=== PATIENT | female | born 1985 | race Caucasian/White ===

== ENCOUNTER → 2020-08-23 14:53 | Outpatient (CLI) | payer BC, SELFPAY ==
--- NOTE | ~2020-08-23 | CT_ITS ---
EXAMINATION: CTA chest PE protocol DATE: 08/23/2020 15:39 INDICATION: Shortness of breath. Elevated d-dimer. TECHNIQUE: Computed tomography (CT) pulmonary angiogram of the chest was performed with 100 mL Omnipa que-350 intravenous contrast. Additional 3D reconstructions utilizing coronal maximum intensity proje ction (MIP) were performed. The dose-length product was 636.30 mGy-cm. COMPARISON: None FINDINGS: Excellent contrast opacification of the pulmonary arteries. There is mild streak artifact from dense contrast in the superior vena cava and right atrium. Generally mild scattered respiratory motion maggie fact with moderate motion artifact at the posterior basilar lower lobes. Overall this mildly decrease s sensitivity in some of the smaller subsegmental pulmonary arteries. No pulmonary embolism. No pneum onia, pulmonary edema or other pulmonary infiltrates. No pleural effusion or pneumothorax. Heart size is normal. No pericardial effusion. Thoracic aorta is normal in caliber with no dissection. No patho logically enlarged thoracic lymphadenopathy. Cholecystectomy clips at the gallbladder fossa. Mild low er thoracic spondylosis. IMPRESSION: 1. No pulmonary embolism or other acute cardiopulmonary disease. Reviewed, dictated and finalized at location [facility]
[2020-08-23 15:30] LABS: Estimated Glomerular Filt Rate > 60
== END ==
DX: R79.89 Other specified abnormal findings of blood chemistry (principal)
CPT/HCPCS: 71275; Q9967

== ENCOUNTER 2022-01-02 11:32 | Outpatient (CLI) | payer BC, SELFPAY | END 2022-01-02 11:33 | disposition home or self-care (01) | PROVIDERS: PCP Family Medicine | DX: Z32.00 Encounter for pregnancy test, result unknown (principal) | CPT/HCPCS: 36415; 84702 ==

== ENCOUNTER 2022-05-30 11:12 | Outpatient (CLI) | payer BC, SELFPAY ==
[2022-05-30 12:52] LABS: Basophils Percent Auto 0.3 % (0.2-1.2); Eosinophils Absolute Auto 0.3 K/mm3 (0-0.3); Eosinophils Percent Auto 2.3 % (0-4.4); Hematocrit 30.7 % (37.0-47.0); Hemoglobin 10.5 g/dL (12.0-15.0); Immature Granulocyte Absolute 0.11 K/mm3 (0.00-0.031); Immature Granulocyte Percent A 0.9 % (0-0.5); Lymphocytes Absolute Auto 1.68 K/mm3 (0.9-3.2); Lymphocytes Percent Auto 14.1 % (18.3-44.2); Mean Corpuscular HGB Conc 34.2 g/dl (32-36); Mean Corpuscular Hemoglobin 29.3 pg (26-34); Mean Corpuscular Volume 85.8 fl (80-100); Mean Platelet Volume 9.8 fl (7.4-10.4); Monocytes Absolute Auto 0.4 K/mm3 (0.1-0.6); Monocytes Percent Auto 3.4 % (2.6-8.5); Neutrophils Absolute Auto 9.4 K/mm3 (1.3-6.7); Platelet Count Result 298 k/mm3 (150-375); Red Blood Count 3.58 M/mm3 (4.2-5.4); Red Cell Distribution Width 13.1 % (11.5-14.5); White Blood Count 11.9 K/mm3 (4.5-10.0)
[2022-05-30 12:56] LABS: Creatinine Urine 239.4 mg/dL; Total Protein Urine Random 7 mg/dL; Ur Ttl Prot Creatinine Ratio 0.03 mg/mg (0-0.20)
[2022-05-30 13:24] LABS: Alanine Aminotransferase 19 U/L (6-35); Albumin Level 3.7 g/dL (3.5-5.1); Alkaline Phosphatase 125 U/L (38-126); Anion Gap 8 mmol/L (8-16); Aspartate Amino Transferase 19 U/L (14-36); Bilirubin,Total 0.3 mg/dL (0.2-1.3); Blood Urea Nitrogen 3 mg/dL (7-17); Calcium 9.2 mg/dL (8.4-10.2); Carbon Dioxide 22 mmol/L (22-30); Chloride 106 mmol/L (98-107); Estimated Glomerular Filt Rate > 60; Glucose 157 mg/dL (65-110); Glucose 1 Hour PP 50gm Dose 155 mg/dL; Potassium 3.3 mmol/L (3.4-5.0); Sodium 136 mmol/L (137-145)
== END 2022-05-30 11:13 | disposition home or self-care (01) ==
DX: O09.92 Supervision of high risk pregnancy, unspecified, second trimester (principal)
CPT/HCPCS: 36415; 80053; 82570; 82947; 84156; 85025

== ENCOUNTER → 2023-01-30 10:54 | Outpatient (CLI) | payer BC, SELFPAY ==
--- NOTE | ~2023-01-30 | CT_ITS ---
Non-contrast CT scan of the Abdomen and Pelvis Clinical indication: Chronic abdominal pain Technique: 2.5 mm axial scans were obtained through the abdomen and pelvis without intravenous or or al contrast. Dose reduction technique was used on this scan by utilizing automated exposure control a nd iterative reconstruction technique. The dose-length product (DLP) was 980.25 mGy-cm. Findings: Images through the lung bases reveal no abnormalities. The liver, spleen, pancreas, kidneys, and adrenals appear normal. Cholecystectomy clips are present. There is no aortic aneurysm. There is no evidence of bowel obstruction. There is a low anterior midline ventral hernia containing several loops of small bowel. No bowel wall thickening. Images through the pelvis were performed. There is no evidence of ascites or lymphadenopathy. Urinary bladder unremarkable. 4 cm probable right adnexal cyst present. Impression: Low anterior midline ventral hernia containing several loops of small bowel. No bowel wall thickening or obstruction. 4 cm right adnexal cyst. Reviewed, dictated and finalized at [facility]. Impression: Low anterior midline ventral hernia containing several loops of small bowel. No bowel wall thickening or obstruction. 4 cm right adnexal cyst.
== END ==
PROVIDERS: PCP Family Medicine; Visit Provider Family Medicine
DX: R10.9 Unspecified abdominal pain (principal); K43.9 Ventral hernia without obstruction or gangrene
CPT/HCPCS: 74176

== ENCOUNTER 2025-06-16 10:25 | Outpatient (CLI) | payer BC, SELFPAY ==
--- OUTSIDE RECORDS SUMMARY | 2025-06-16 11:04 | XMS_ITS | Clinical Summary ---
Author Organization [facility] Address [address] [place] [address] Care Team Providers Care Human Performance Technologist Name Role Phone Tony Santos MD Primary Care Provider Allergies Active Allergy Reactions Criticality Noted Date Comments Penicillins Rash Low 08/21/2022 Medications vitamin (VINATE M) 27-1 MG Tab tablet Take 1 tablet by mouth daily. Active chlorthalidone (HYGROTEN) 25 MG tablet Take 0.5 tablets (12.5 mg total) by mouth daily. 08/06/2024 Active WEGOVY 2.4 mg/dose injection (PEN) Inject 2.4 mg into the skin once a week. 07/28/2024 Active amLODIPine (NORVASC) 10 MG tablet Take 1 tablet (10 mg total) by mouth daily. 10/23/2024 Active buPROPion SR (WELLBUTRIN SR) 150 MG 12 hr tablet Active ELIQUIS 5 MG tablet Active Active Problems Problem Noted Date Diagnosed Date History of DVT (deep vein thrombosis) 11/19/2024 Family History Medical History Relation Comments Breast Cancer Maternal Grandmother No Known Problems Mother Relation Status Comments Father Maternal Grandmother Mother Alive Social History Tobacco Use Types Packs/Day Years Used Date Smoking Tobacco: Never Smokeless Tobacco: Never Tobacco Cessation:Counseling Given: Not Answered Alcohol Use Standard Drinks/Week Comments Never 0 (1 standard drink = 0.6 oz pur e alcohol) Comments No Sex and Gender Information Value Date Recorded Sex Assigned at Female 08/16/2024 8:49 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 Legal Sex Female 7:09 PM VEGETABLE GROWER Gender Identity Not on file Sexual Orientation Not on file Last Filed Vital Signs Vital Sign Reading Time Taken Comments Blood Pressure 129/77 12/24/2024 2:35 PM CDT Pulse 98 12/24/2024 2:35 PM CDT Temperature 35.8 C (96.5 F) 12/24/2024 2:35 PM CDT Respiratory Rate 20 12/24/2024 2:35 PM CDT Oxygen Saturation 100% 12/24/2024 2:35 PM CDT Inhaled Oxygen Concentration - - Weight 75.8 kg (167 lb) 12/24/2024 2:35 PM CDT Height 170.2 cm (5' 7) 11/19/2024 2:54 PM CDT Body Mass Index 26.16 11/19/2024 2:54 PM CDT Plan of Treatment Health Maintenance Due Date Last Done Comments Cervical Cancer Screening Pap Smear (Age 30 to 64) Every 3 Years 1986 Annual Physical 1989 Hepatitis C 2004 Hepatitis B Vaccines (1 of 3 - 19+ 3-dose series) 2005 HPV Vaccines (1 - 3-dose SCDM series) 2013 Cervical Cancer Screening Pap with HPV Testing (Age 30 to 64) Every 5 Years 2016 Cervical Cancer Screening with HPV 2016 COVID-19 Vaccine ( season) 2025 Influenza Adult (#1) 2025 DTaP, Tdap and Td Vaccines (2 - Td or Tdap) 06/20/2032 06/20/2022, 02/25/1992, 02/26/1988, Additional history exists Hepatitis A Vaccines Aged Out No long er eligible based on patient's age to complete this topic Meningococcal B Vaccine Aged Out No l onger eligible based on patient's age to complete this topic Meningococcal Vaccine Aged Out No rashmi gonsalo eligible based on patient's age to complete this topic Pneumococcal Vaccine: Pediatrics (0 to 5 Years) and At-Risk Patients (6 to 49 Years) Aged Out No longer eligible based on patient's age to complete this topic RSV Immunizations Under 20 Months Aged Out No longer eligible based on patient's age to complete this topic Insurance [facility] Care Teams Human Performance Technologist Relationship Specialty Start Date End Date Tony Santos MD [address] [place] [address] PCP - General FAMILY PRACTICE 05/05/19
--- OUTSIDE RECORDS SUMMARY | 2025-06-16 11:04 | XMS_ITS | Encounter Summary ---
Author Organization [facility] Address [address] [place] [address] Care Team Providers Care Silo Painter Name Role Phone oTny Santos MD Primary Care Provider [phone]- [phone] Encounter Details Date Type Department Care Team (Late st Contact Info) Description 07/03/2022 Telephone [facility] [place] [id number] Gavi Stephens RT Social History Tobacco Use Types Packs/Day Years Used Date Smoking Tobacco: Never Smokeless Tobacco: Never Alcohol Use Standard Drinks/Week Comments Yes 1 (1 standard drink = 0.6 oz pur e alcohol) once a week Comments Yes Sex and Gender Information Value Date Recorded Sex Assigned at Not on file Legal Sex Female 9:45 AM CDT Gender Identity Not on file Sexual Orientation Not on file documented as of this encounter Plan of Treatment Not on file documented as of this encounter Visit Diagnoses Not on filedocumented in this encounter Care Teams Silo Painter Relationship Specialty Start Date End Date Tony Santos MD [address] [place] [address] [place] [address] PCP - General 04/15/18 documented as of this encounter
--- OUTSIDE RECORDS SUMMARY | 2025-06-16 11:04 | XMS_ITS | Clinical Summary ---
Author Organization [employer] [facility] Address [address] [place] [address] Care Team Providers Care Community Health Nurse Name Role Phone Pcp, Hazel Primary Care Provider [phone] Social History Tobacco Use Types Packs/Day Years Used Date Smoking Tobacco: Never Assessed Comments Unknown Sex and Gender Information Value Date Recorded Sex Assigned at Not on file Legal Sex Female 10:19 PM EDT Gender Identity Not on file Sexual Orientation Not on file Plan of Treatment Not on file Medical Devices Not on file Insurance [facility] Care Teams Community Health Nurse Relationship Specialty Start Date End Date Pcp, Hazel PCP - General Family Medicine 02/02/21
--- OUTSIDE RECORDS SUMMARY | 2025-06-16 11:04 | XMS_ITS | Encounter Summary ---
Author Organization [facility] Address [address] [place] [address] Phone Care Team Providers Care Technology Methodology Consultant Name Role Phone Tony Santos MD Primary Care Provider [phone]- [phone] Encounter Details Date Type Department Care Team (Late st Contact Info) Description 06/16/2025 Orders Only [facility] Medicine Gastroenterology [address] [place] [address] [place] [address] Sarah Pineda RN Elevated liver enzymes (Primary Dx) Social History Tobacco Use Types Packs/Day Years Used Date Smoking Tobacco: Never Smokeless Tobacco: Never Alcohol Use Standard Drinks/Week Comments Yes 1 (1 standard drink = 0.6 oz pur e alcohol) once a week AUDIT-C Answer Date Recorded Q1: How often do you have a drink containing alcohol? Never 08/31/2022 Q2: How many drinks containi ng alcohol do you have on a typical day when you are drinking? Patient does not drink Q3: How often do you have si x or more drinks on one occasion? Never 08/31/2022 Titus Depression Scale Answer Date Recorded Titus Depression Scale Total 6 09/14/2022 The thought of harming myself has occurred to me . Never 09/14/2022 Personal Safety Answer Date Recorded Have you ever been in or are you currently in a harmful physical or emotional relationship or is someone making you feel afraid or unsafe? Denies 06/08/2025 Comments Unknown Sex and Gender Information Value Date Recorded Sex Assigned at Not on file Legal Sex Female 9:45 AM CDT Gender Identity Not on file Sexual Orientation Not on file documented as of this encounter Plan of Treatment Scheduled Orders Name Type Priority Associated Diagnoses Orde r Schedule Comprehensive metabolic panel Lab Routine Elevated liver enzymes Expected: 06/23/2025, Expires: 06/16/2026 documented as of this encounter Visit Diagnoses Diagnosis Elevated liver enzymes- Primary Other nonspecific abnormal serum enzyme levels documented in this encounter Care Teams Technology Methodology Consultant Relationship Specialty Start Date End Date Tony Santos MD [address] [address] PCP - General 04/15/18 documented as of this encounter
--- OUTSIDE RECORDS SUMMARY | 2025-06-16 11:04 | XMS_ITS | Clinical Summary ---
Author Organization [facility] Address [address] [place] [address] Care Team Providers Care Creative Services Designer Name Role Phone Tony Santos MD Primary Care Provider [phone] Allergies Active Allergy Reactions Criticality Noted Date Comments Amoxicillin Hives Medium 12/10/2017 Enalapril Cough Low 08/16/2023 Medications amLODIPine (NORVASC) 10 mg tabletIndications :Chronic hypertension affecting Take 1 tablet (10 mg total) by mouth daily 90 tablet 3 Active vit [id number] 27mg iron- 800 mcg-250 mg capsule Take by mouth Active cholecalciferol, vitamin D3, (VITAMIN D3 ORAL) Take by mouth Active aspirin 81 mg enteric coated tabletIndications :Chronic hypertension affecting ,Supervi gallito of high-risk , first trimester Take 1 tablet (81 mg total) by mouth daily Start at 12 weeks. 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 Hightower on 09/25, reviewed today: counseled the patient that these findings have up to a 50% association with aneuploidy and genetic syndromes. Counseled that in the 50% of cases without genetic abnormalities, about 1/3 will have a major structural abnormality, 1/3 will undergo miscarriage or IUFD, and 1/3 will be apparently normal on follow-up. Underwent CVS today. Desiring to continue at this time, previously counseled on options. Plan [] F/u in 2 weeks for dop tones [] CVS on 09/30, f/u FISH/ELECTRIC ARC FURNACE OPERATOR and Adalgisa Luciano to send hydrops panel vs Violet syndrome testing if FISH negative [x] T&S w/ passive anti-D on 09/18 [] Specialized anatomy US w/ MCA dopplers in 4 weeks [] echo to be scheduled at next appointment [] Infection testing via amniocentesis if above workup negative and continues w/ persistent hydrops Incisional hernia of anterior abdominal wall Overview (08/31/2023): History Ms. Fulton developed a large anterior abdominal wall hernia following her section 08/2022 that contains nonobstructed loops of small bowel. She has previously met with Dr. Telles regarding this finding and desire to repair this after she has completed childbearing. Previously counseled Plan [] Follow up with Dr. Telles 10/09/2023 [] Consider joint case with general surgery for delivery [] Imaging in to be determined as progresses Assessment & Plan (08/16/2023 6:01 PM ARCHITECTURAL DRAFTER): History Ms. Fulton developed a large anterior abdominal wall hernia following her section 08/2022 that contains nonobstructed loops of small bowel. She has previously met with Dr. Telles regarding this finding and desire to repair this after she has completed childbearing. Counseling We reviewed that abdominal wall hernias are at increased risk for obstruction, gangrene, and complication in secondary to the expanding abdominal contents. However, in her situation the abdominal hernia is large which decreases the risk of these complications. We reviewed that this defect would require closure eventually (ideally after completed childbearing) and that mesh may be required pending general surgery recommendations. We reviewed that general surgery may also be asked to join for a joint case in her delivery by section given the bowel contents of the hernia. Plan [] Follow up with Dr. 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 Counseling We reviewed that neural tube defects are relatively common congenital anomalies that can result in malformation of the vertebrae, spinal cord, and/or brain. We reviewed risk factors for NTDs including folate deficiency, obesity, pregestational diabetes, and genetic/syndromic factors. We reviewed that the recurrence risk with one previous affected is approximately 5% or 1/20 and that recurrence risk is likely related to a multifactorial inheritance pattern that includes both genetic and environmental factors. We discussed the availability of early screening for diagnosis of affected pregnancies. We discussed that in women with a prior affected the preferred method of screening would be ultrasound in conjunction with serum MSAFP (for oNTD). We reviewed that typically we perform an early anatomy ultrasound between 11-13 weeks and can offer MSAFP at 15-18 weeks. We then perform a detailed anatomical survey between 18-20 weeks. Furthermore we reviewed that in the setting of an abnormal result we would recommend a karyotype or microarray given fetuses with NTDs are at increased risk (~6.5%) of chromosomal abnormalities, especially in the setting of other structural anomalies. (~9%). Finally, we did discuss the topic of folic acid and its ability to decrease the recurrence risk of neural tube defects in subsequent pregnancies. The risk of recurrence is in the range of 5% without supplementation. With the use of 4 mg of folic acid per day for at least 3 months preconception there is a 75% reduction in the risk of recurrence. Ms. Fulton is currently taking 800 mcg daily of folic acid in vitamin. 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 Her partner is known negative for SMA. Plan [x] Genetic counseling offered - 08/16/23, declines (previously completed) Assessment & Plan (08/16/2023 6:04 PM ARCHITECTURAL DRAFTER): History Ms. Fulton is a known silent carrier for SMA. Her partner is known negative for SMA. Plan [x] Genetic counseling offered - 08/16/23, declines (previously completed) Obesity complicating 08/15/2023 Overview (08/31/2023): History Pre- BMI 36, previously counseled Plan [x] As per Roberto Carlos, TIGIST, and hx GDM problems Assessment & Plan (08/15/2023 6:33 PM ARCHITECTURAL DRAFTER): History Pre- BMI 36. Counseling The risks associated with obesity, including preeclampsia, gestational diabetes, delivery, growth abnormalities (FGR and macrosomia) and stillbirth. We would recommend a specialized anatomic survey, serial growth assessment and surveillance. Aspirin 81mg should be started after 12 weeks to decrease the risk of preeclampsia. We would recommend early diabetes screening. Plan [x] As per cHTN, AMA, and hx GDM problems Supervision of high-risk 08/07/2023 Overview (10/03/2023): [x] Full [facility] Care; [x] Blue Team Referring Provider: Self Referral. Prior [facility] patient [] or Medicare Insurance [x] Dating Criteria: LMP 06/21/23 with JOAO 03/27/24, L=1 by 1T US on 08/16 [x] Labs: Rh [AB-], Ab [negative], Rubella [reactive], HIV [nonreactive], HepBSAg [nonreactive], RPR [nonreactive], Hep C [nonreactive], Varicella [reactive], GC/CT [not detected] [x] Aneuploidy: discussed 08/16/23, declined 09/04/23 [x] Carrier Screening: Carrier of Spinal Muscular Atrophy (AR) > partner is known negative [x] CBC/Hgb: 12.1/34.7/327 [x] Early 1hr GTT (if indicated): HbA1c ordered 08/16/23- 5.2 [x] UCx: insignificant growth on 09/30 [x] Pap: 11/09/17: NILM; HPV negative - reports Pap 09/2022 with primary OB - to obtain records [x] Flu Shot (Feb-May): n/a [] COVID [x] LD ASA (if indicated): indicated, to start at 12 weeks [] EPDS [ ]; PNBHS referral (if indicated) 2nd Tri Labs: [] Anatomy ultrasound: [] CBC/1hr gtt at 24-28wks: [] Tdap (27-36wks): [] Rhogam at 28 wks (if Rh neg): 3rd Tri Labs: [] CBC/HIV/RPR/T&S: [] GBS: [] GC/CT (if indicated): [] testing: [] RSV Counseling [x] MOD: rCS at 36-37 weeks [x] Place of delivery: [facility] [] Blood Products [] Stop ASA [] MOC: [] Method of feeding: [] Gear Tooth Grinding Machine Operator: [] PP Depression Discussed: Assessment & Plan (08/16/2023 6:09 PM ARCHITECTURAL DRAFTER): Initial OB visit. Ultrasound not consistent with LMP, dated by US today. Needs all labs, including HbA1c for history of GDM and baseline PIH labs. Reviewed recommendation to increase folic acid due to history of encephalocele. SEROLOGIES NEEDED [] Co-management vs. [x] Full MFM Care; [] Red Team [x] Blue Team Referring Provider: Self Referral. Prior MFM patient [] or Medicare Insurance [x] Dating Criteria: LMP 06/21/23 with JOAO 03/27/24 [] Labs: Rh [ ], Ab [ ], Rubella [ ], HIV [ ], HepBSAg [ ], RPR [ ], Hep C [ ], Varicella [ ], GC/CT [ ] - ordered 08/16/23 [] Aneuploidy: discussed 08/16/23, considering [x] Carrier Screening: Carrier of Spinal Muscular Atrophy (AR) > partner is known negative [] CBC/Hgb: ordered 08/16/23 [] Early 1hr GTT (if indicated): HbA1c ordered 08/16/23 [] UCx: to be completed at next visit [x] Pap: 11/09/17: NILM; HPV negative - reports Pap 09/2022 with primary OB - to obtain records [] Flu Shot (Feb-May): [] COVID [] LD ASA (if indicated): indicated, to start at 12 weeks [] EPDS [ ]; PNBHS referral (if indicated) 2nd Tri Labs: [] Anatomy ultrasound: [] CBC/1hr gtt at 24-28wks: [] Tdap (27-36wks): [] Rhogam at 28 wks (if Rh neg): 3rd Tri Labs: [] CBC/HIV/RPR/T&S: [] GBS: [] GC/CT (if indicated): [] testing: [] RSV Counseling [x] MOD: rCS at 36-37 weeks [x] Place of delivery: [facility] [] Blood Products [] Stop ASA [] MOC: [] Method of feeding: [] Gear Tooth Grinding Machine Operator: [] PP Depression Discussed: History of gestational diabetes 10/09/2022 Overview (09/30/2023): History Had GDMA2 in G2 . Did not complete 2hr GTT . Previously counseled Plan [x] HbA1c - 5.2% [] Screening at 24-28 weeks if HbA1c is normal Assessment & Plan (08/16/2023 6:04 PM ARCHITECTURAL DRAFTER): History Had GDMA2 in G2 . Did not complete 2hr GTT . Counseling We reviewed that gestational diabetes is a condition in which carbohydrate intolerance develops during resulting in elevated blood sugars. We reviewed that women with a history of gestational diabetes in a prior are at increased risk of gestational diabetes in subsequent pregnancies as well as having an approximately 50-70% risk of developing T2DM over the next 10 years. We would recommend early diabetes screening this . If this is normal, we would recommend routine screening at 24-28 weeks. Plan [] HbA1c - ordered 08/16/23 [] Screening at 24-28 weeks if HbA1c is normal Chronic hypertension affecting 023 Overview (09/25/2023): History Known chronic hypertension, previously on amlodipine 10 mg qD + chlorthalidone (which she stopped for ). Blood pressure elevated on initial OB visit (140/84). Added hydralazine 25 mg TID. Previously counseled Current regimen: Amlodipine 10mg qD + Hydralazine 25mg TID Plan [x] ASA at 12 weeks [x] Baseline labs (CBC, CMP, UPC) - collected 08/16/23- WNL [x] EKG: NSR 09/03/2022 [] Maternal ECHO - ordered 08/16/23- not scheduled - auth completed [] Specialized anatomic survey [] Serial growth ultrasound starting at 24 weeks [] Weekly surveillance starting at 32 weeks [] Delivery at 38 weeks Assessment & Plan (08/16/2023 6:03 PM ARCHITECTURAL DRAFTER): History Known chronic hypertension, previously on amlodipine 10 mg qD + chlorthalidone (which she stopped for ). Blood pressure elevated on initial OB visit (140/84). Added hydralazine 25 mg TID. Counseling We counseled the patient that chronic hypertension is associated with an increased risk of adverse outcomes, including FGR and stillbirth. Additionally, we discussed that hypertension is associated with development of superimposed preeclampsia with severe features and placental abruption, which can result in iatrogenic delivery in up to 30% of women with mild chronic hypertension. Baseline preeclampsia labs (CBC, creatinine, BUN, AST, ALT) is recommended in all patients with a history of hypertension. A workup for end organ damage is also recommended, including an EKG/ECHO and urine protein evaluation. A fundoscopic exam by ophthalmology is recommended as well, if one has not been performed within 12 months. A low dose aspirin is recommended at 12 weeks for preeclampsia prophylaxis. Precautions (headache, scotomata, epigastric pain) were reviewed. We reviewed the course of blood pressures in , that usually patients experience a decrease in systemic pressure in the first trimester, and a gradual rise starting at 28 weeks. Recent data from 09/2021 in the CHAPS study recommend a treatment BP goal of <140/90 antepartum. This study was shown to reduce the risk of maternal preeclampsia with severe features, iatrogenic at less than 35 weeks of gestation, placental abruption, or or while the incidence of birthweight less than the 10th percentile was similar in the groups as were serious maternal and complications. Therefore, we would recommend blood pressure goals of <140/90 with initiation of medication if blood pressures are consistently above this goal range. A pre-eclamptic workup would be recommended if her blood pressures is elevated and significantly above her usual baseline or in the severe range for . Plan [] Medication management: Amlodipine 10mg qD + Hydralazine 25mg TID (started 08/16/23) [] ASA at 12 weeks [] Baseline labs (CBC, CMP, UPC) - collected 08/16/23 [x] EKG: NSR 09/03/2022 [] Maternal ECHO - ordered 08/16/23 [] Specialized anatomic survey [] Serial growth ultrasound starting at 24 weeks [] Weekly surveillance starting at 32 weeks [] Delivery at 38 weeks History of section complicating pregnan cy 10/09/2022 Overview (08/31/2023): History In G2 had primary CS for EFW >5g in the setting of encephalocele that was converted to J incision. It was disclosed to the patient at that time that labor is contraindicated in future pregnancies and that we would recommend earlier delivery to avoid labor in the future. Previously counseled Plan [] Delivery by repeat section at 36-37 week Assessment & Plan (08/15/2023 6:27 PM ARCHITECTURAL DRAFTER): History In G2 had primary CS for EFW >5g in the setting of encephalocele that was converted to J incision. It was disclosed to the patient at that time that labor is contraindicated in future pregnancies and that we would recommend earlier delivery to avoid labor in the future. Counseling We discussed with patient that, compared with low transverse incisions, incisions that involve vertical hysterotomy such as that in her her history are associated with a higher rate of uterine rupture. While we do not have significant data on J-incisions, the uterine rupture rate after prior classical during attempts at trial of labor is as high as 9%. As such, we would recommend delivery via repeat section at 36-37 weeks gestation. Plan [] Delivery by repeat section at 36-37 week History of depression 04/06/2022 Overview (04/06/2022): Previously on Wellbutrin AMA (advanced maternal age) 03/13/2022 Overview (09/30/2023): History Will be 38 years old at time of delivery, previously counseled Plan [] F/u CVS results per hygroma problem [] Remainder of plan per [place] problem Assessment & Plan (08/16/2023 6:05 PM ARCHITECTURAL DRAFTER): History Will be 38 years old at time of delivery. Counseling We discussed that advanced maternal age (AMA) is associated with increased risks of spontaneous , aneuploidy, gestational diabetes, and hypertensive disorders of . We discussed genetic screening and diagnostic testing options, as well as the risks and benefits of each. For the increased risk of preeclampsia, we would recommend taking aspirin 81 mg daily starting at 12 weeks gestation. We discussed the recommendation for a specialized ultrasound between 18-20 weeks. In addition, we recommended serial growth assessments every 4 weeks following the anatomic survey. We recommend delivery at 39 weeks unless indicated sooner. Plan [] NIPT - offered 08/16/23, patient is considering [] Remainder of plan per [place] problem Assessment & Plan (08/02/2022 10:49 AM ARCHITECTURAL DRAFTER): We discussed timing for aspirin cessation which has not been definitively delineated. Although the main goal with asa prophylaxis is preventing early severe preeclampsia which has been avoided. Uterine polyp 03/05/2018 Overview (03/05/2018): Added automatically from request for surgery [id number] Resolved Problems Problem Noted Date Diagnosed Date Resolved Date care following delivery 08/31/2022 10/09/2022 Overview (09/03/2022): # ID: Afebrile. No signs/symptoms of infection. #COVID-19: Test not indicated # Heme: EBL 1140 mL. No symptoms acute blood loss anemia. #Rh negative: Baby Rh+, rhogam given 09/01. # CV/Pulm: Chronic hypertension - Blood pressures well controlled on amlodipine 10 mg daily. Asymptomatic, denies OLIVIA/RUQ pain/vision changes. CBC/CMP wnl, UPC 0.11. Enrolled in home BP monitoring 09/02. # GI/: Tolerating PO. Voiding spontaneously. # GDM2: regimen NPH 26 qAM and 38qHS, discontinued for . Fasting BG PPD1: 72. # Pain: Controlled with above regimen. # Post DVT prophylaxis: The patient has the following MAJOR risk factors none and the following MINOR risk factors BMI 30-39, PPH (EBL >/= 1000 mL), age >/= 35 and parity >/=3. enoxaparin 40 mg daily ordered for VTE prophylaxis. # MOC: Declines s/p counseling # MOF: . Urine drug screen not indicated. Patient informed of results: N/A. # COVID Vaccination Status: Not assessed # Disposition: Follow up [facility]. Desires discharge home today. Polyhydramnios in third trim olivier, not applicable or unspecified fetus 07/04/2022 10/10/19 Overview (08/02/2022): Resolved 08/02 Assessment & Plan (07/04/2022 2:27 PM ARCHITECTURAL DRAFTER): Polyhydramnios was noted today. Patient with known anomalies and diabetes. The risks of polyhydramnios, including maternal discomfort, labor, rupture of membranes, cord accident, and hemorrhage, were all briefly reviewed. Plan for repeat scan in 2 weeks. Gestational diabetes mellitu s (GDM) in third trimester 06/20/2022 10/09/2022 Overview (08/29/2022): S/p counseling Current regimen: 08/21/2022 NPH 24 units qAM and 36qHS--> NPH 26 qAM and 38qHS Plan: - strongly encouraged she schedule with diabetes education - weekly logs to [facility] for review - serial growth US - testing at 32 weeks Assessment & Plan (08/29/2022 3:21 PM ARCHITECTURAL DRAFTER): Log reviewed and adjustments made. Assessment & Plan (08/02/2022 10:41 AM ARCHITECTURAL DRAFTER): Glucose logs reviewed earlier this week and insulin adjusted accordingly at that time Assessment & Plan (07/18/2022 1:17 PM ARCHITECTURAL DRAFTER): BS log reviewed with elevated fastings and PCs. Patient has viral symptoms for the last few days. Will increase her bedtime NPH and plan for repeat log on Sunday with ACs and PCs. Assessment & Plan (07/04/2022 2:26 PM ARCHITECTURAL DRAFTER): BS log reviewed with continued elevated fasting and some elevated PCs. Will increase insulin and review again at the end of the week. Assessment & Plan (06/20/2022 3:39 PM ARCHITECTURAL DRAFTER): Counseled today for newly diagnosed gDM. Reviewed need for qid accu checks with a fasting and 1-hour post-prandial daily. The goals are fasting glucose of <95 and a 1-hour post-prandial glucose of <140 as these have been associated with decreased risk of adverse outcomes. Reviewed the importance of a good diabetic diet. We discussed importance of diabetes ed/it security consulting director. Patient will consider. We reviewed importance of tight glycemic control and possible need for medication. We discussed that insulin the the standard of care in but that metformin could also be an option. We will plan to review her BS logs weekly. Reviewed a risk of diabetes in is LGA fetus and risks associated with LGA include possible need for c/s, vacuum/forcep assisted vaginal delivery, shoulder dystocia and pp hemorrhage. Reviewed risk of hypoglycemia in the . Also discussed risk of developing T2DM within the next 5-10 years is 50% and reviewed importance of 2 hour gtt and a healthy lifestyle with good PCP f/u. We recommend serial growth US. If she required medication for glycemic control, we would recommend initiating antepartum surveillance at 32 weeks. Well controlled gestational diabetes will not require delivery prior to 39 weeks or testing in the third trimester. 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 Will continue to address at next visit following pact and neurosurgery appt. Assessment & Plan (05/08/2022 5:20 PM ARCHITECTURAL DRAFTER): 05/08/22 Reviewed ultrasound findings including severe left ventriculomegaly and minimal volume of supratentorial brain matter. Discussed that this finding yields a less favorable prognosis in terms of neurodevelopment. We discussed that development of the brain occurs over the course of and MRI will likely be more useful for counseling about prognosis if performed in 3rd trimester. Will notify Peds Neuro team of significant changes in ultrasound noted today. All patient and family questions answered. Chronic hypertension affecting 03/13/2022 10/09/2022 Overview (08/29/2022): S/p counseling. Did not tolerate Nifedipine due to palpitations. Current regimen: 08/29/2022 Amlodipine 10mg daily Recommendations: - Baseline PEC labs (see media tab) - EKG- reviewed with Alaina Jacome NP, sinus tach noted, if remains asymptomatic no future workup needed - Ophtho referral - Serial growth US - Advised daily BP checks, asked to send via [employer] for our review - Consider testing at 32 weeks - Delivery by 39 weeks Assessment & Plan (08/21/2022 10:40 AM ARCHITECTURAL DRAFTER): Counseled on risks of preE and strongly encouraged pt present immediately to the [facility] with Bps in the 150s/100s or symptoms of preE. Assessment & Plan (07/18/2022 1:18 PM ARCHITECTURAL DRAFTER): Bp log reviewed with good control. Assessment & Plan (07/04/2022 1:57 PM ARCHITECTURAL DRAFTER): BP log reviewed with most values at goal. Will continue close monitoring. Assessment & Plan (06/21/2022 2:41 PM ARCHITECTURAL DRAFTER): Bps now normal. Continue close monitoring. PreE/WAC precautions reviewed. Assessment & Plan (06/05/2022 12:39 PM ARCHITECTURAL DRAFTER): BP log reviewed with mild range Bps. Will f/o preE and continue close BP monitoring resulting from ass isted reproductive technology in second trimester 03/13/2022 10/09/2022 Overview (06/05/2022): S/p counseling [] 05/08/22 - Recommended for echo but pt declines at this time. Reviewed that although we have excellent US that sometimes echos can help find small cardiac anomalies that could be helpful fo counseling and planning after . Rh negative state in antepar twin period, second trimester 03/13/2022 10/09/2022 Overview (06/21/2022): 03/29/22: Andrew received d/t Amnio S/p rhogam 06/20 Supervision of high-risk pre gnancy, second trimester 03/13/2022 10/09/2022 Overview (08/21/2022): [x] Full M Care; [x] Blue Team Referring Provider: Tony Santos [phone] [x] Dating Criteria: Day 5 FET 12/20/21 with JOAO 09/07/22 [x] Labs: Rh [AB-], Ab [negative], Rubella [immune], HIV [not done], HepBSAg [negative], RPR [non-reactive], Hep C [negative], Varicella [not done], GC/CT [Neg/Neg] [x] Genetic Screening:Carrier Screen: Carrier of Spinal Muscular Atrophy (AR) SMN1, Amnio WNL [x] CBC/Hgb 12.7/37.7/plt 282 [x] UCx: No growth [x] Pap: 11/09/18: NILM; HPV negative [x] LD ASA (if indicated) starting at 12 weeks: [x] EPDS [5]; PNBHS referral (if indicated) 2nd Tri Labs: [x] Anatomy ultrasound: 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), bilateral vents (L- 18, R- 10.9mm) [x] CBC/1hr gtt at 24-28wks: H&H: 10.5/30.7, 1hr GTT 155 (failed), 3hr GTT 103/181/148/96 (failed) [] Flu Shot (Feb-May): pt declines 05/08/2022, s/p counseling on risks of maternal and [x] Tdap (27-36wks): 06/20/2022 MM [] COVID Vaccine: counseled on risk of maternal and and pt declines [x] Rhogam at 28 wks (if Rh neg):06/20/2022 MM 3rd Tri Labs: [x] CBC/HIV/RPR: 11.2/33/307k, HIV Neg, RPR NR [x] GBS: Negative [x] testing: plan for 2x/weekly testing at 32w for cHTN and gmda2- [facility] will help arrange Counseling [x] MOD: primary cs 08/31 @ 0930 [x] For C/S bottle of CHG 4% and hand out provided [x] Place of delivery: [facility] [x] MOC: IVF , s/p counseling on risk of short interval , pt declines contraception [x] Method of feeding: breast [x] 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 She progressed to complete and had an unmedicated delivery within 4 hours. Encounters Date Type Department Care Team Description 06/16/2025 Orders Only [facility] [address] [place] [address] [place] [address] Sarah Pineda RN Elevated liver enzymes (Primary Dx) 06/08/2025 2:25 PM ARCHITECTURAL DRAFTER - 06/08/2025 6:04 PM ARCHITECTURAL DRAFTER Emergency [facility] Emergency Department [address] [place] [address] Estiven Rader MD Musleh, Amjad, MD Abdominal pain, generalized (Primary Dx); Abdominal pain, epigastric; Right upper quadrant abdominal pain Discharge Disposition: Discharge to home or self care 06/08/2025 Documentation [facility] [address] [place] [address] [place] [address] Thu Rodriguez CMA Follow-up 05/29/2025 10:00 AM ARCHITECTURAL DRAFTER [facility] [address] [place] [id number] Frankie Telles MD Incisional hernia of anterior abdominal wall (Primary Dx) from Last 3 Months Immunizations Immunization Administration Dates Next Due Tdap 06/20/2022 Surgical History Surgery Date Site/Laterality Comments CHOLECYSTECTOMY 06/25/2009 - 06/24/2010 CYSTECTOMY 06/25/2016 - 06/24/2017 NECK SURGERY 06/25/1995 - 06/24/1996 LUMPECTOMY, BENIGN SECTION 08/23/2022 - 09/22/2022 Medical History Medical History Date Comments Hypertension Endometriosis Obesity (BMI 30-39.9) PONV (postoperative nausea and vomiting) Family History Medical History Relation Name Comments Hypertension Father Cancer Maternal Grandmother Diabetes Maternal Grandmother Anesthesia problems Neg Hx Relation Name Status Comments Father Maternal Grandfather Maternal Grandmother Alive Mother Alive Paternal Grandfather Paternal Grandmother Sister 1 Alive Sister 2 Alive Social History Tobacco Use Types Packs/Day Years Used Date Smoking Tobacco: Never Smokeless Tobacco: Never Tobacco Cessation:Counseling Given: Not Answered Alcohol Use Standard Drinks/Week Comments Yes 1 [...] more drinks on one occasion? Never 08/31/2022 [place] Depression Scale Answer Date Recorded [place] Depression Scale Total 6 09/14/2022 The thought [...] on file Sexual Orientation Not on file Obstetrics History Para Term AB IAB SAB Ectopic Multiple Livin g Live Births 6 2 2 4 3 0 2 2 Date Outcome GA Total Labor Labor/07/28 Weight Sex Type Anes PTL Callie A1 A5 Name Clin AB 2009 Term M Vag-Sp ont Livin g 3 SAB 14w 0d at 14 weeks 3 SAB 12w 0d 2022 Term 39w 0d 0h 03m 0h 03m 4.53 kg (9 lb 15.8 oz) F C-S j incis Spinal N Livin g 8 9 SPENC ER,GI RLWHI ELOISEEY Johnna Arias MD Complications:None Delivery Location:[facility] Main C ampus ([facility] L AND D PROCEDURE) 2023 SAB 16w 1d 0.046 kg (1.6 oz) U SAB None Y Demis e Complications:Premature Rupt ure of Membranes Delivery Location:This Facil it (patient delivered in Triage) Last Filed Vital Signs Vital Sign Reading Time Taken Comments Blood Pressure 136/84 06/08/2025 1:45 PM ARCHITECTURAL DRAFTER Pulse 132 06/08/2025 1:45 PM ARCHITECTURAL DRAFTER Temperature 37.3 C (99.1 F) 06/08/2025 1:45 PM ARCHITECTURAL DRAFTER Respiratory Rate 18 06/08/2025 1:45 PM ARCHITECTURAL DRAFTER Oxygen Saturation 97% 06/08/2025 1:45 PM ARCHITECTURAL DRAFTER Inhaled Oxygen Concentration - - Weight 72.6 kg (160 lb) 06/08/2025 1:45 PM ARCHITECTURAL DRAFTER Height 177.8 cm (5' 10) 06/08/2025 1:45 PM ARCHITECTURAL DRAFTER Body Mass Index 22.96 06/08/2025 1:45 PM ARCHITECTURAL DRAFTER Plan of Treatment Health Maintenance Due Date Last Done Comments Cervical Cancer Screening 1986 Varicella Vaccines (1 of 2 - 13+ 2-dose series) 1999 Regular Well Visit/Exam 18-64 2004 HPV Vaccines (1 - 3-dose SCDM series) 2013 Depression Screening 09/15/2023 09/14/2022 Influenza Vaccine (#1) 2025 05/12/2003 DTaP/Tdap/Td Vaccine (8 - Td or Tdap) 06/20/2032 06/20/2022, 06/29/2009, 09/19/2000, Additional history exists Hepatitis B Screening Completed 08/29/1996 , 04/30/1996, 03/10/1996 Hepatitis C Screening Completed 06/08/2025 , 06/08/2025, 09/04/2023, Additional history exists Pneumococcal vaccine <65 Aged Out No longer eligible based on patient's age to complete this topic Procedures Procedure Name Priority Date/Time Associated Diagnosis Comments HEPATITIS PANEL, ACUTE STAT 5:[address] ABDOMEN PELVIS W CONTRAST ED 06/08/2025 3:33 PM ARCHITECTURAL DRAFTER POCT HCG, URINE Routine 06/08/2025 3:20 PM ARCHITECTURAL DRAFTER POCT CREATININE - DEVICE Routine 06/08/2025 3:14 PM ARCHITECTURAL DRAFTER URINALYSIS, MICROSCOPIC ONLY STAT 06/08/2025 3:10 PM ARCHITECTURAL DRAFTER URINALYSIS AND REFLEX TO MICROSCOPIC STAT 06/08/2025 3:10 PM ARCHITECTURAL DRAFTER EGFR STAT 06/08/2025 2:01 PM ARCHITECTURAL DRAFTER DIFFERENTIAL AUTO STAT 06/08/2025 2:0 1 PM ARCHITECTURAL DRAFTER LIPASE STAT 06/08/2025 2:01 PM ARCHITECTURAL DRAFTER COMPREHENSIVE METABOLIC PANEL STAT 06/08/2025 2:01 PM ARCHITECTURAL DRAFTER CBC WITH AUTO DIFFERENTIAL STAT 06/08/2025 2:01 PM ARCHITECTURAL DRAFTER from Last 3 Months Results * Hepatitis panel, acute Blood (06/08/2025 5:47 PM ARCHITECTURAL DRAFTER) Hep A IgM Nonreactive Nonreactive Hep B core IgM Nonreactive Nonreactive [facility] Hep C Ab Nonreactive Nonreactive [facility] Comment:Antibodies to HCV no t detected. Does NOT exclude the possibility of recent exposure to HCV. Current interpretive data was last revised on 22 HepBsAg Nonreactive Nonreactive [facility] Blood 06/08/2025 5:47 PM ARCHITECTURAL DRAFTER 06/08/2025 5:53 PM ARCHITECTURAL DRAFTER Shayla Hemphill MD LAB MICROBIOLOGY - GENERAL ORDER ROSE MARIE Final Result [facility] [address] [facility] [place] [address] * CT Abdomen Pelvis W Contrast (06/08/2025 3:33 PM ARCHITECTURAL DRAFTER) Anatomical Region Laterality Modality Body N/A Computed Tomogra phy 06/08/2025 4:06 PM ARCHITECTURAL DRAFTER Impressions 06/08/2025 4:06 PM ARCHITECTURAL DRAFTER 1. Interval decreased small to moderate fat-containing ventral infraumbilical hernia. No bowel involvement or evidence of bowel obstruction. 2. Postsurgical changes related to cholecystectomy with interval increased mild to moderate intrahepatic and extra hepatic biliary ductal dilation that smoothly tapers at the ampulla, which favors physiologic reservoir effect. Correlation with liver enzymes is recommended. Electronically signed by: Rhina Zambrano MD Narrative 06/08/2025 4:06 PM ARCHITECTURAL DRAFTER EXAMINATION: Computed tomography of the abdomen and pelvis with intravenous contrast HISTORY: Patient is 39 years old and Female with symptoms of SBO and history of known ventral hernia. TECHNIQUE: Transaxial computed tomographic images of the abdomen and pelvis were obtained with intravenous contrast according to the standard protocol after the administration of 69 mL Opti-Ray 350 intravenous contrast. COMPARISON: 01/30/2023 CT FINDINGS: Compared to 01/30/2023, there is interval decreased size of a small to moderate fat-containing ventral infraumbilical hernia containing fat. The liver is normal. Cholecystectomy clips are present. There is mild to moderate intrahepatic and extrahepatic biliary ductal dilation that tapers at the ampulla, which is increased from 01/30/2023. The pancreas, spleen, adrenal glands, kidneys, ureters, and bladder are normal. A surgical clip is present at the margin of the anterior uterine fundus. A 4.1 cm left ovarian cyst is present. No abnormal bowel dilation. There are prominent nonenlarged mesenteric and retroperitoneal lymph nodes. The vasculature is normal. Similar sclerotic lesion in the left sacrum, likely a bone island. There are bilateral gluteal granulomas, likely related to medication injection. In the visible chest, there is a calcified granuloma in the left lower lobe. Procedure Note Rhina Zambrano MD - 06/08/2025 EXAMINATION: Computed tomography of the abdomen and pelvis with intravenous contrast HISTORY: Patient is 39 years old and Female with symptoms of SBO and history of known ventral hernia. TECHNIQUE: Transaxial computed tomographic images of the abdomen and pelvis were obtained with intravenous contrast according to the standard protocol after the administration of 69 mL Opti-Ray 350 intravenous contrast. COMPARISON: 01/30/2023 CT FINDINGS: Compared to 01/30/2023, there is interval decreased size of a small to moderate fat-containing ventral infraumbilical hernia containing fat. The liver is normal. Cholecystectomy clips are present. There is mild to moderate intrahepatic and extrahepatic biliary ductal dilation that tapers at the ampulla, which is increased from 01/30/2023. The pancreas, spleen, adrenal glands, kidneys, ureters, and bladder are normal. A surgical clip is present at the margin of the anterior uterine fundus. A 4.1 cm left ovarian cyst is present. No abnormal bowel dilation. There are prominent nonenlarged mesenteric and retroperitoneal lymph nodes. The vasculature is normal. Similar sclerotic lesion in the left sacrum, likely a bone island. There are bilateral gluteal granulomas, likely related to medication injection. In the visible chest, there is a calcified granuloma in the left lower lobe. IMPRESSION: 1. Interval decreased small to moderate fat-containing ventral infraumbilical hernia. No bowel involvement or evidence of bowel obstruction. 2. Postsurgical changes related to cholecystectomy with interval increased mild to moderate intrahepatic and extra hepatic biliary ductal dilation that smoothly tapers at the ampulla, which favors physiologic reservoir effect. Correlation with liver enzymes is recommended. Electronically signed by: Rhina Zambrano MD Estiven Rader MD IMG CT PROCEDURES Final Re sult * POCT hCG, urine (06/08/2025 3:20 PM ARCHITECTURAL DRAFTER) HCG, ur, POC Negative Negative Lot Number [id number] QC Backgroud Clear Acceptable QC Control Line Acceptable Urine 06/08/2025 3:20 PM ARCHITECTURAL DRAFTER Result [facility] Estiven Rader MD POINT OF CARE TEST ORDERAB LES Final Result * POCT creatinine (06/08/2025 3:14 PM ARCHITECTURAL DRAFTER) Creatinine POC 0.8 0.6 - 1.1 mg/dL Blood 06/08/2025 3:14 PM ARCHITECTURAL DRAFTER 06/08/2025 3:14 PM ARCHITECTURAL DRAFTER Result [facility] Estiven Rader MD LAB POCT ORDERABLES - PAYAM CE Final Result [facility] Department [place] [address] * (ABNORMAL) Urinalysis reflex to microscopic (06/08/2025 3:10 PM ARCHITECTURAL DRAFTER) Color, ur Yellow Yellow Clarity, ur Clear Clear [facility] Specific gravity, ur 1.036(H) 1.003 - 1.030 [facility] pH, urine 6.0 [facility] Comment: Interpretive Data U rine pH is affected by diet, medications, systemic acid-base disturbances, and renal tubular function. pH may affect urinary stone formation. For example, urine pH below 6.0 may help reduce the tendency for calcium phosphate stones and pH greater than 6.0 may reduce the tendency for uric acid stone formation. Source: [facility] Current Interpretive Data was last revised on 2017 Protein, ur ql 1+(A) Negative [facility] Glucose, ur ql Negative Negative [facility] Ketones, ur Trace Negative [facility] Bilirubin, ur Negative Negative [facility] Blood, ur Negative Negative [facility] Urobilinogen, ur <2.0 <2.0 mg/dL [facility] Nitrite, ur Negative Negative [facility] Leukocyte esterase, ur Negative Negative [facility] UA reflex comment Reflex to microscopic UA will be performed. [facility] Urine 06/08/2025 3:10 PM ARCHITECTURAL DRAFTER 06/08/2025 3:29 PM ARCHITECTURAL DRAFTER us Estiven Rader MD LAB URINE ORDERABLES Final Result Performing Organization Address City/[facility] Co de Phone Number [facility] [place] [address] * (ABNORMAL) Urinalysis, microscopic only (06/08/2025 3:10 PM ARCHITECTURAL DRAFTER) WBC, ur 0-5 0 - 5 /HPF RBC, ur 0-2 0 - 2 /HPF [facility] Epithelial cells, squamous, ur 1-5 0 - 5 /HPF [facility] Mucous, ur Present(A) [facility] Urine 06/08/2025 3:10 PM ARCHITECTURAL DRAFTER 06/08/2025 3:29 PM ARCHITECTURAL DRAFTER us Eric Puente MD LAB URINE ORDERABLES Fi nal Result Performing Organization Address City/[facility] Co de Phone Number [facility] [place] [address] * eGFR (06/08/2025 2:01 PM ARCHITECTURAL DRAFTER) eGFR >90 >=60 mL/min/1. 73 m2 Comment: Interpretive Data Reference Interval Normal >/= 90 mL/min/1.73m2 Mildly decreased* 60 - 89 mL/min/1.73m2 Mildly to moderately decreased 45 - 59 mL/min/1.73m2 Moderately to severely decreased 30 - 44 mL/min/1.73m2 Severely decreased 15 - 29 mL/min/1.73m2 Kidney Failure < 15 mL/min/1.73m2 *Relative to young adult level Estimated glomerular filtration rate is determined by the 2020 CKD-EPI equation recommended by the National Kidney Foundation (A Unifying Approach to GFR Estimation: Recommendations of the NKF-ASK Task Force on Reassessing the Inclusion of Race in Diagnosing Kidney Disease, JASN 202). The CKD-EPI equation should not be used for patients with unstable renal function and has not been validated in children and those over 70. Current interpretive data was last reviewed 2021. Blood 06/08/2025 2:01 PM ARCHITECTURAL DRAFTER 06/08/2025 2:53 PM ARCHITECTURAL DRAFTER us Eric Puente MD LAB BLOOD ORDERABLES Fi nal Result [facility] Department [place] [address] * (ABNORMAL) Differential, auto (06/08/2025 2:01 PM ARCHITECTURAL DRAFTER) Neutrophil abs 9.08(H) 1.50 - 6.50 K/cumm Imm gran abs 0.02 0.00 - 0.10 K/cumm [facility] Lymphocyte abs 0.53(L) 0.80 - 3.30 K/cumm [facility] Monocyte abs 0.48 0.20 - 0.80 K/cumm [facility] Eosinophil abs 0.06 0.00 - 0.50 K/cumm [facility] Basophil abs 0.01 0.00 - 0.10 K/cumm [facility] Neutrophil pct 89.2 % [facility] Comment: Interpretive Data Percent cell count reference ranges are not reported, since discordance with absolute values may lead to misinterpretation of CBC data. Current Interpretive Data was last revised on 2017. Imm gran pct 0.2 % [facility] Comment: Interpretive Data Percent cell count reference ranges are not reported, since discordance with absolute values may lead to misinterpretation of CBC data. Current Interpretive Data was last revised on 2017. Lymphocyte pct 5.2 % [facility] Comment: Interpretive Data Percent cell count reference ranges are not reported, since discordance with absolute values may lead to misinterpretation of CBC data. Current Interpretive Data was last revised on 2017. Monocyte pct 4.7 % [facility] Comment: Interpretive Data Percent cell count reference ranges are not reported, since discordance with absolute values may lead to misinterpretation of CBC data. Current Interpretive Data was last revised on 2017. Eosinophil pct 0.6 % [facility] Comment: Interpretive Data Percent cell count reference ranges are not reported, since discordance with absolute values may lead to misinterpretation of CBC data. Current Interpretive Data was last revised on 2017. Basophil pct 0.1 % [facility] Comment: Interpretive Data Percent cell count reference ranges are not reported, since discordance with absolute values may lead to misinterpretation of CBC data. Current Interpretive Data was last revised on 2017. Blood 06/08/2025 2:01 PM ARCHITECTURAL DRAFTER 06/08/2025 2:53 PM ARCHITECTURAL DRAFTER us Eric Puente MD LAB BLOOD ORDERABLES Fi nal Result [facility] Department [place] [address] * (ABNORMAL) CBC with auto differential (06/08/2025 2:01 PM ARCHITECTURAL DRAFTER) WBC 10.18(H) 3.80 - 9.90 K/cumm Hgb 14.0 11.9 - 15.5 g/dL [facility] Hct 40.6 35.6 - 45.5 % [facility] Plt 329 150 - 400 K/cumm [facility] MPV 10.1 9.1 - 12.3 fL [facility] RBC 5.00 3.90 - 5.20 M/cumm [facility] MCV 81.2(L) 81.3 - 96.4 fL [facility] MCH 28.0 27.1 - 33.3 pg [facility] MCHC 34.5 32.3 - 35.7 g/dL [facility] RDW CV 11.9 11.1 - 14.9 % [facility] RDW SD 34.8(L) 35.7 - 48.1 fL [facility] NRBC abs 0.00 0.00 - 0.01 K/cumm [facility] Blood Venous blood specimen / Unknown 06/08/2025 2:01 PM ARCHITECTURAL DRAFTER 06/08/2025 2:53 PM ARCHITECTURAL DRAFTER Estiven Rader MD LAB BLOOD ORDERABLES Final Result Performing Organization Address City/[facility]/ZIP Co de Phone Number [facility] [place] [place] [address] * Lipase (06/08/2025 2:01 PM ARCHITECTURAL DRAFTER) [facility] Lipase 32 10 - 99 Units/L Blood Venous blood specimen / Unknown 06/08/2025 2:01 PM ARCHITECTURAL DRAFTER 06/08/2025 2:53 PM ARCHITECTURAL DRAFTER Estiven Rader MD LAB BLOOD ORDERABLES Final Result Performing Organization Address City/[facility]/ZIP Co de Phone Number [facility] [place] [place] [address] * (ABNORMAL) Comprehensive metabolic panel (06/08/2025 2:01 PM ARCHITECTURAL DRAFTER) [facility] Sodium 138 135 - 145 mmol/L Potassium, pl 4.4 3.3 - 4.9 mmol/L [facility] Chloride 106 97 - 110 mmol/L [facility] CO2 22 22 - 32 mmol/L [facility] Anion gap 10 2 - 15 mmol/L [facility] BUN 11 6 - 25 mg/dL [facility] Creatinine 0.77 0.60 - 1.10 mg/dL [facility] Glucose 112 70 - 199 mg/dL [facility] Comment: Interpretive Data Fasting glucose >/= 126 mg/dl is diagnostic for diabetes. Fasting is defined as no caloric intake for at least 8 hours. Fasting glucose between 100 mg/dl to 125 mg/dl is diagnostic of prediabetes. In a patient with classic symptoms of hyperglycemia or hyperglycemic crisis, a random glucose >/= 200 mg/dl is diagnostic for diabetes. In the absence of unequivocal hyperglycemia, results should be confirmed by repeat testing. The classification and Diagnosis of Diabetes Diabetes Care 2021; 46: S19-S40. Current interpretive data was last revised 2022. Calcium 9.3 8.5 - 10.3 mg/dL [facility] Bilirubin, total 0.8 0.1 - 1.2 mg/dL [facility] Protein, pl 7.6 6.5 - 8.5 g/dL [facility] Albumin 4.4 3.5 - 5.0 g/dL [facility] Alk phos 125 40 - 130 Units/L [facility] ALT 318(H) 7 - 45 Units/L [facility] AST 352(H) 10 - 45 Units/L [facility] Blood 06/08/2025 2:01 PM ARCHITECTURAL DRAFTER 06/08/2025 2:53 PM ARCHITECTURAL DRAFTER Estiven Rader MD LAB BLOOD ORDERABLES Final Result [facility] [place] [address] from Last 3 Months Insurance [facility] Advance Directives For more information, please contact: [phone] * Full Code (Latest Code Status on File) Date Activated Date Inactivated Comments 08/31/2022 2:02 PM 09/03/2022 6:19 PM * Full Code Date Activated Date Inactivated Comments 08/31/2022 8:10 AM 08/31/2022 2:02 PM Full CPR in ca se of cardiopulmonary arrest Care Teams Creative Services Designer Relationship Specialty Start Date End Date Tony Santos MD [address] [place] [address] PCP - General 04/15/18
[2025-06-16 11:27] LABS: Alanine Aminotransferase 111 U/L (6-35); Albumin Level 4.2 g/dL (3.5-5.1); Alkaline Phosphatase 84 U/L (38-126); Anion Gap 7 mmol/L (4-12); Aspartate Amino Transferase 22 U/L (14-36); Bilirubin,Total 0.7 mg/dL (0.2-1.3); Blood Urea Nitrogen 7 mg/dL (7-17); Calcium 9.2 mg/dL (8.4-10.2); Carbon Dioxide 29 mmol/L (22-30); Chloride 104 mmol/L (98-107); Estimated Glomerular Filt Rate > 60; Glucose 90 mg/dL (65-110); Potassium 3.6 mmol/L (3.4-5.0); Sodium 140 mmol/L (137-145); Total Protein 7.3 g/dL (6.3-8.2)
== END 2025-06-16 10:26 | disposition home or self-care (01) ==
LOC: ANHLAB 10:27
PROVIDERS: PCP Family Medicine; Visit Provider Internal Medicine Gastroenterology
DX: R74.8 Abnormal levels of other serum enzymes (principal)
CPT/HCPCS: 36415; 80053